=== PATIENT | female | born 1970 | race Caucasian/White ===

== ENCOUNTER 2016-07-24 11:04 | Emergency (ER) | payer MEDICARE, MEDICAID ==
[~2016-07-24] VITALS: Ht 160 cm; Wt 61.8 kg
[2016-07-24 11:09] VITALS: TEMP 98.1
[2016-07-24] MEDS ORDERED: TEGRETOL 2200 MG/TA1 PO (11:29)
[2016-07-24] MEDS ORDERED: VENTOLIN0.09 MG IH (11:30)
[2016-07-24] MEDS ORDERED: TOPAMAX50 MG PO (11:30)
[2016-07-24] MEDS ORDERED: KEPPRA 500MG500 MG PO (11:32)
[2016-07-24 11:39] LABS: BASO % 1.1 % (0.0-2.0); EOS # 0.1 (0.0-0.7); EOS % 2.7 % (0-4.0); GRAN # 1.8 (1.4-6.5); GRAN % 48.8 % (42.2-75.2); HEMATOCRIT 40.2 % (37.0-47.0); HEMOGLOBIN 13.6 g/dl (12.5-16.0); LYMPH # 1.5 (1.2-3.4); LYMPH % 40.9 % (20.0-51.0); MEAN CELL VOLUME 90 fl (80.0-100.0); MEAN CORPUSCULAR HEMOGLOBIN 30 pg (27.0-31.0); MEAN CORPUSCULAR HGB CONC 34 g/dl (33.0-37.0); MEAN PLATELET VOLUME 9.9 fl (7.4-10.4); MONO # 0.2 (0.1-0.6); MONO % 6.2 % (1.7-9.3); PLATELET COUNT 179 K/mm3 (130-400); RED BLOOD COUNT 4.48 M/mm3 (4.10-5.30); REDCELL DISTRIBUTION WIDTH-CV 13.7 % (11.5-14.5); WHITE BLOOD COUNT 3.7 K/mm3 (4.8-10.8)
[2016-07-24 11:56] LABS: ADJUSTED CALCIUM 9.6 mg/dL (8.4-10.2); ALANINE AMINOTRANSFERASE 38 U/L (9-52); ALBUMIN 4.3 gm/dL (3.5-5.0); ALKALINE PHOSPHATASE 146 U/L (50-136); ANION GAP 12 mmol/L (7-16); BILIRUBIN,TOTAL 0.7 mg/dL (0.0-1.0); BLOOD UREA NITROGEN 13 mg/dL (7-17); CALCIUM 9.8 mg/dL (8.4-10.2); CARBON DIOXIDE 22 mmol/L (22-30); CHLORIDE 106 mmol/L (98-107); CREATININE, serum 0.93 mg/dL (0.52-1.25); GLUCOSE 91 mg/dL (74-106); POTASSIUM 4.1 mmol/L (3.4-5.0); SODIUM 140 mmol/L (137-145); TOTAL PROTEIN 7.9 gm/dL (6.4-8.2)
[2016-07-24 11:59] LABS: C-REACTIVE PROTEIN < 0.5 mg/dL (0.0-0.9)
[2016-07-24 12:08] LABS: INFLUENZA B NEGATIVE
[2016-07-24 12:08] LABS: PROLACTIN 12.1 ng/mL (3.0-18.6)
[2016-07-24 12:43] LABS: TROPONIN-I < 0.012 ng/mL (0.000-0.034)
[2016-07-24 12:50] LABS: PH 6 (5-8); SQUAMOUS EPITHELIAL 0-2 /hpf; URINE APPEARANCE Clear; URINE BACTERIA Rare /hpf; URINE BILIRUBIN Negative (NEGATIVE); URINE BLOOD Negative (NEGATIVE); URINE COLOR Straw; URINE GLUCOSE Negative (NEGATIVE); URINE KETONE Negative (NEGATIVE); URINE RBC 0-2 /hpf; URINE UROBILINOGEN Negative (NEGATIVE); URINE WBC 0-2 /hpf
[2016-07-24 12:57] LABS: CARBAMAZEPINE (TEGRETOL) 10.4 ug/mL (4.0-12.0)
[2016-07-24] MEDS ORDERED: ATIVAN 0.50.5 MG/TAB PO (13:41)
[2016-07-24 14:31] VITALS: BP 108/59; PULSE 59
== END 2016-07-24 14:32 | disposition home or self-care (01) ==
LOC: COL.ER 11:04
PROVIDERS: Physician Assistant
DX: R25.8 Other abnormal involuntary movements (principal); F41.9 Anxiety disorder, unspecified; G40.909 Epilepsy, unspecified, not intractable, without status epilepticus; Z85.3 Personal history of malignant neoplasm of breast; R07.89 Other chest pain